=== PATIENT | male | born 1985 | race Caucasian/White ===

== ENCOUNTER 2023-09-17 14:36 | Emergency (ER) | payer BC, SELFPAY ==
--- NOTE | 2023-09-17 14:38 | ED.EAR ---
HPI - Ear Problem General Chief complaint: Ear Stated complaint: Right Ear Irritation Time Seen by Provider: 09/17/23 14:38 Source: patient Mode of arrival: ambulatory Limitations: no limitations History of Present Illness HPI Narrative: Valdo is a 37-year-old male patient presenting to the clinic today with complaints of right ear pain and possible cerumen impaction. He reports he has a history of chronic otitis externa. No fever or chills. Does have a throbbing pain to the right ear. Related Data Home Medications Medication Instructions Recorded Confirmed insulin glargine 100 unit/mL (3 18 unit subcut DAILY 09/17/23 09/17/23 mL) subcutaneous pen (Basaglar KwikPen U-100 Insulin) insulin lispro 100 unit/mL See Rx Instructions .Route .COMPLEX 09/17/23 09/17/23 subcutaneous solution Allergies Allergy/AdvReac Type Severity Reaction Status Date / Time No Known Allergies Allergy Verified 09/17/23 15:00 Review of Systems Review of Systems: Pertinent positives per HPI. Patient denies any fever, chills, rash, headache, visual changes, dizziness, cough, shortness of breath, chest pain, palpitations, nausea, vomiting, diarrhea, constipation, abdominal pain, or any urinary issues. [facility] Family History Family History Sibling Diabetes mellitus Social History Social History Smoking status: Never smoker Alcohol intake: never Substance use: never Comments At the time of my signature, I reviewed and agree with the nursing past medical, surgical, social, and family history. There is no relevant family history pertinent to the patient complaint. Exam Narrative: General: Well-developed, well nourished, in no apparent distress Head: Normocephalic, atraumatic Eyes: Pupils equally round and reactive to light bilaterally, EOM intact, sclera and conjunctive clear, no discharge, lids normal Ears: Left tm intact and clear, bilateral ear canals ceruminous, ear irrigation was performed, right ear canal swollen, tender to palpation over the right tragus and pulling of the right pinna, unable to visualize right TM due to canal swelling, ear wick was placed in the right ear canal, no drainage, grossly hearing normal. Nose: Nares patent, no discharge, no inflammation, no sinus tenderness. Mouth: Oral pharynx without lesions or masses, good dentition, MMM. Neck: Supple, trachea midline, no enlargement of anterior or posterior cervical nodes, no thyroid masses or goiter palpable. Cardio: Regular rate and rhythm, s1 and s2 normal, no murmur appreciated. Resp: Clear to auscultation bilaterally, no rhonchi, rales, wheezing or rubs Course Course Emergency Course: Portions of this record may have been created with voice recognition software. Level of Care: Express Care Visit Vital Signs Vital signs: Vital signs reviewed Procedures Ear Wax Removal Both Ears: Ear Wax Removal Date: 09/17/23 Results: Re-examined: cerumen removed completely TM Examination: TM(s) intact, normal appearance (Left) Ear Canal Exam: atraumatic (Left) and other (Right ear canal swollen) Patient Tolerated Procedure: well and no complications Complications: no problems Technique: ear canal irrigated and ear canal curetted Additional Comments: Verbal consent obtained for ear irrigation. Risk and benefits explained and patient voiced understanding. Ear irrigation performed using an elephant ear and spray water bottle. Mixture of 1/2 peroxide 1/2 water used to irrigate ear canal. Cerumen impaction cleared and left TM visualized without redness. Unable to visualize right TM due to canal swelling Ear wick was inserted into the right ear canal Grossly hearing normal. Patient tolerated procedure well Medical Decision Making MDM Narrative Medical decision making narrative
[2023-09-17 14:53] VITALS: BP 141/96; PULSE 116; RESP 16; TEMP 36.9; O2SAT 100
== END 2023-09-17 15:38 | disposition home or self-care (01) ==
PROVIDERS: Emergency Provider Nurse Practitioner Family; PCP Internal Medicine Infectious Disease
DX: H60.311 Diffuse otitis externa, right ear (principal); H61.23 Impacted cerumen, bilateral; E10.9 Type 1 diabetes mellitus without complications
CPT/HCPCS: 69209; 99213; G0463

== ENCOUNTER 2024-07-26 22:30 | Emergency (ER) | payer BC, SELFPAY ==
--- NOTE | ~2024-07-26 | XR_ITS ---
EXAMINATION: XR hand RT min 3V, XR wrist RT min 3V DATE: 07/26/2024 23:21 INDICATION: Right hand and wrist pain and swelling post fall TECHNIQUE: 1. Posteroanterior, oblique, and lateral views of the right wrist were obtained. 2. Dorsal palmar, oblique and lateral views of the right hand were obtained. COMPARISON: None. FINDINGS: Comminuted intra-articular fracture of the distal right radius. There is dorsal impaction predominant ly at the central aspect of the articular surface resulting in 35 degrees dorsal tilt of the distal a rticular surface. On the dorsal palmar projection there is a few millimeter radial displacement of th e radial styloid process and ulnar displacement of an ulnar-sided fragment of the distal radius. Nondisplaced fracture across the base of the ulnar styloid process. Normal alignment and joint spaces with no fractures in the right hand proper. IMPRESSION: 1. Comminuted dorsally impacted intra-articular fracture of the distal right radius with 35 degrees d orsal tilt. 2. Nondisplaced ulnar styloid avulsion fracture. Reviewed, dictated and finalized at location A. RONMENTAL COMPLIANCE SPECIALIST IMPRESSION: 1. Comminuted dorsally impacted intra-articular fracture of the distal right ra dius with 35 degrees dorsal tilt. 2. Nondisplaced ulnar styloid avulsion fracture.
--- NOTE | ~2024-07-26 | CT_ITS ---
EXAMINATION: CT cervical spine wo con DATE: 07/26/2024 23:38 INDICATION: Fall with possible head injury TECHNIQUE: Computed tomography (CT) of the cervical spine was performed without intravenous contrast. Automated exposure control and iterative reconstruction technique were employed. The dose-length pro duct was 317.98 mGy-cm. COMPARISON: None FINDINGS: Mild reversal of the normal cervical lordosis. Vertebral body heights are normal. No fracture. Mild d isc height loss at C3-C4, C4-C5 and C5-C6. There are associated posterior endplate osteophytes result ing in mild central canal stenosis at each of these levels. There is multilevel bilateral cervical fa cet and uncovertebral osteoarthritis. This contributes to mild neural foraminal stenosis with left-si ded predominance at C3-C4 through C5-C6. Cervical soft tissues are unremarkable. Visualized apices of the lungs are clear. IMPRESSION: 1. Mild cervical spondylosis with no acute osseous abnormality. Reviewed, dictated and finalized at location A. ACT MIXER
--- NOTE | ~2024-07-26 | CT_ITS ---
EXAMINATION: CT brain wo con DATE: 07/26/2024 23:38 INDICATION: Syncopal episode. Head injury. TECHNIQUE: Computed tomography (CT) of the head was performed without intravenous contrast. Sagittal and coronal reconstructions were performed. The mA was adjusted according to patient size. Iterative reconstruction technique was employed. The dose-length product was 681.00 mGy-cm. COMPARISON: None FINDINGS: No fracture. No acute intracranial hemorrhage, acute infarction or abnormal extra axial fluid collect ion. Ventricles are normal and symmetric. No mass/mass effect. Mild mucosal thickening in the left ma xillary sinus. The orbits and mastoid air cells are normal. IMPRESSION: 1. Normal brain. No fracture or acute intracranial process. Reviewed, dictated and finalized at location A. E LINER RUBBER
[2024-07-26 22:34] VITALS: BP 164/103; PULSE 75; RESP 15; TEMP 37.3; O2SAT 100
[2024-07-26 22:40] LABS: Glucose Point of Care 118 mg/dl (65-105)
--- NOTE | 2024-07-26 22:55 | ECG_ITS ---
Test Date: 2024-07-26 23:04:40 Measurements Intervals [place] Rate: 72 P: 66 MN: 151 QRS: 70 QRSD: 82 T: 55 QT: 357 QTc: 391 Interpretive Statements SINUS RHYTHM BASELINE ARTIFACT- I, II, III, AVR, AVL, AVF, V1-V6 NORMAL ECG No previous ECG available for comparison Electronically Signed On 07-27-2024 07:32:59 ENVIRONMENTAL TECHNOLOGY PROFESSOR by Sav Rubio D.O.
[2024-07-26] MEDS: HYDROcodone/acetaminophen (*CRX) 5-325 MG TABLET 1 TAB PO (23:06)
--- NOTE | 2024-07-26 23:10 | ED.UPPEXIN ---
HPI - Extremity Injury (Upper) General Chief Complaint: Extremity Injury, Upper Stated Complaint: fall, wrist pain Time Seen by Provider: 07/26/24 22:33 Source: patient Mode of arrival: ambulatory Limitations: no limitations History of Present Illness HPI narrative: Patient is a 38-year-old male who presents the ED with report of right wrist pain. Patient reports a history of poorly controlled type 1 diabetes. States he often over/under does his insulin. He has had issues with hypoglycemia in the past and reported seizures/passing out related to this. He states he went to the grocery store today with his cousin when he began feeling shaky. He had given himself 16 units of insulin earlier in the day after eating two granola bars. He states his cousin witnessed him pass out and fall to the ground. Patient is unsure if he hit his head. He states this occurred around 7:30 p.m. His cousin drove gave him a full Mountain Dew and drove him home. Since being home, he has noticed pain swelling in his right wrist. He is concerned he injured his wrist in the fall which prompted his return. He reports some tingling throughout the R hand. Denies numbness. Denies any other areas of pain, dizziness, headache, vision changes. Related Data Home Medications Medication Instructions Recorded Confirmed insulin glargine 100 unit/mL (3 18 unit subcut DAILY 09/17/23 09/17/23 mL) subcutaneous pen (Basaglar KwikPen U-100 Insulin) insulin lispro 100 unit/mL See Rx Instructions .Route .COMPLEX 09/17/23 09/17/23 subcutaneous solution Allergies Allergy/AdvReac Type Severity Reaction Status Date / Time No Known Allergies Allergy Verified 09/17/23 15:00 Review of Systems Review of Systems: All systems reviewed & are unremarkable except as noted in HPI. All systems reviewed & are unremarkable except as noted in HPI and below PMFSH Past Medical History Medical History (Updated 07/27/24 @ 00:07 by Lina Dick PA-C) Diabetes Family History Family History Sibling Diabetes mellitus Social History Social History Smoking status: Never smoker Alcohol intake: never Substance use: never Exam Narrative: GENERAL: Well appearing, well-nourished, non-toxic, in no acute distress. HEAD: Normocephalic, atraumatic. EYES: PERRL/EOMI, conjunctiva clear. No nystagmus. RESPIRATORY: Airway patent, respirations nonlabored. Clear to auscultation bilaterally, no rales, rhonchi, wheezing. CARDIOVASCULAR: Regular rate and rhythm without murmurs, rubs, or gallops. Radial pulses are intact and easily palpable. MUSCULOSKELETAL: Limited range of motion of right wrist flexion/extension and finger flexion due to pain. Moderate swelling noted throughout distal wrist/dorsal hand with focal TTP. Sensation intact. No tenderness through proximal forearm or R elbow. SKIN: Warm, dry, normal color. NEURO: A&O X3. Speech clear. Cranial nerves II-XII grossly intact. Steady gait. No ataxic movements. No focal neurologic deficits. PSYCHIATRIC: Appropriate mood and affect. Normal interaction. Course Vital Signs Vital signs: Vital Signs Temperature 99.1 F 07/26/24 22:34 Pulse Rate 75 07/26/24 22:34 Respiratory Rate 15 07/26/24 22:34 Blood Pressure 164/103 H 07/26/24 22:34 Pulse Oximetry 100 07/26/24 22:34 Oxygen Delivery Room Air 07/26/24 22:34 Temperature 99.1 F 07/26/24 22:34 Pulse Rate 76 07/27/24 00:37 Respiratory Rate 14 07/27/24 00:37 Blood Pressure 156/92 H 07/27/24 00:37 Pulse Oximetry 98 07/27/24 00:37 Oxygen Delivery Room Air 07/26/24 22:34 MDM - Extremity Injury (Upper) [facility] Narrative Medical decision making narrative: Blood sugar upon arrival 118. Patient was given juice here. He did not want to eat anything at this time. He reports history of frequent hypoglycemic episodes/seizure-like episodes in the past. He is not on any antiepileptic medications. Admittedly reports he is not a great diabetic and does not monitor his insulin very well. He is scheduled to follow-up with a new communication signals intelligence in early September. Patient is otherwise neurologically intact. In no acute distress. Vitals otherwise stable. Basic laboratory studies were obtained and unremarkable. No significant concerning findings. Blood sugar on CMP was 138. Stable electrolytes. Stable kidney function. No evidence of diabetic emergency at this time. CT brain and cervical spine without acute traumatic findings. X-ray of right wrist interpreted by myself with comminuted distal radius fracture with ulnar styloid fracture. Sent to [facility] for official read. Patient will be placed in sugar-tong splint. Given sling. Advised will need to follow-up with orthopedics for further evaluation/management of fracture. Will send pain medication to pharmacy. Also advised close follow-up with PCP for diabetic management. Patient given strict return precautions. He is in agreement with plan and feels comfortable going home. His cousin is at bedside and will help monitor patient. Patient discharged in stable condition. Vital signs stable at time of D/C. Medical Records Attestation: I reviewed the patient's medical records. Lab Data Attestation: I reviewed the patient's lab results. 07/26/24 23:25 07/26/24 23:25 Labs: Lab Results 07/26/24 07/26/24 Range/Units 22:38 23:25 WBC 12.8 H (4.5-10.0) K/mm3 RBC 4.21 L (4.6-6.20) M/mm3 Hgb 14.0 (14.0-18.0) g/dL Hct 40.4 L (42.0-52.0) % MCV 96.0 (80-100) fl MCH 33.3 (26-34) pg MCHC 34.7 (32-36) g/dl RDW 12.9 (11.5-14.5) % Plt Count 237 (150-375) k/mm3 MPV 9.9 (7.4-10.4) fl Immature Gran % (Auto) 0.3 (0-0.5) % Neut % (Auto) 87.5 H (45.5-73.1) % Lymph % (Auto) 8.1 L (18.3-44.2) % [place] % (Auto) 3.6 (2.6-8.5) % Eos % (Auto) 0.2 (0-4.4) % Baso % (Auto) 0.3 (0.2-1.2) % Lymph # (Auto) 1.04 (0.9-3.2) K/mm3 [place] # (Auto) 0.5 (0.1-0.6) K/mm3 Eos # (Auto) 0.0 (0-0.3) K/mm3 Baso # (Auto) 0.0 (0.0-0.1) K/mm3 Abs Immat Gran (auto) 0.04 H (0.00-0.031) K/mm3 Absolute Neuts (auto) 11.2 H (1.3-6.7) K/mm3 Absolute Nucleated RBC 0.000 (0.0-0.012) K/mm3 Nucleated RBC % 0.0 (0.0-0.2) % Sodium 133 L (137-145) mmol/L Potassium 4.4 (3.4-5.0) mmol/L Chloride 100 (98-107) mmol/L Carbon Dioxide 27 (22-30) mmol/L Anion Gap 6 (4-12) mmol/L BUN 18 (9-20) mg/dL Creatinine 0.90 (0.7-1.3) mg/dL Estim Creat Clear Calc 107 ml/min Estimated GFR > 60 (59 - ) Glucose 138 H (65-110) mg/dL POC Capillary Glucose 118 H (65-105) mg/dl Calcium 9.2 (8.4-10.2) mg/dL Magnesium 1.7 (1.6-2.3) mg/dL Total Bilirubin 0.7 (0.2-1.3) mg/dL AST 27 (17-59) U/L ALT 20 (6-50) U/L Alkaline Phosphatase 69 (38-126) U/L Total Protein 7.0 (6.3-8.2) g/dL Albumin 4.3 (3.5-5.1) g/dL Imaging Data Attestation: I personally reviewed and interpreted this imaging study as follows: My impression: XR R wrist: Comminuted distal radius fracture +ulnar styloid fracture. Possible fracture abnormality of trapezius/trapezoid bone? Radiologist's impression: STAT RAD CT brain: Unremarkable noncontrast CT scan of the brain. There is mild paranasal sinus disease. [facility] Cervical spine: No acute fracture. Reversal of the normal cervical lordosis. Hypertrophic degenerative changes with degenerative posterior osteophytes. [facility] R wrist: There is a comminuted, displaced, angulated fracture noted the distal radius. The fracture extends to the articular surface. There is a nondisplaced fracture of the ulnar styloid process. No incidental findings. ECG Data EKG #1: Attestation: I personally reviewed and interpreted this ECG as follows: ECG completion date: 07/26/24 ECG completion time: 23:04 EKG Interpretation: normal rate (72), sinus rhythm, non-specific ST changes and other (moderate baseline artifact) Discharge Plan Discharge Clinical Impression: Hypoglycemia Fracture of distal end of radius Qualifiers: Encounter type: initial encounter Fracture type: closed Fracture morphology: Colles' Laterality: right Qualified Code(s): S52.531A - Colles' fracture of right radius, initial encounter for closed fracture Syncope Qualifiers: Syncope type: unspecified Qualified Code(s): R55 - Syncope and collapse Fracture of right ulnar styloid Qualifiers: Encounter type: initial encounter Fracture type: closed Fracture alignment: nondisplaced Qualified Code(s): S52.614A - Nondisplaced fracture of right ulna styloid process, initial encounter for closed fracture Patient Disposition: Home, Self-Care Condition: Stable Instructions: Antibiotic Form, Wrist Fracture in Adults (ED), How to Use a Sling (ED), Hypoglycemia in a Person with Diabetes (ED), Splint Care (ED), What to Do if Your Blood Sugar is Low (ED) Additional Instructions: Follow-up with orthopedics for further evaluation. Call office on Sunday morning to make appointment. Wear splint until seen by orthopedics. Recommend elevation of arm, frequent icing. Utilize Tylenol/ibuprofen as needed for pain. [place] as needed for more severe pain. Continue to monitor blood sugars and administer insulin appropriately. Follow-up with your primary care doctor and communication signals intelligence for further diabetic management. Return to the ED if you experience worsening or severe symptoms, recurrent passing out/seizure episodes, recurrent injury, severe pain, worsening numbness/tingling, or any other symptoms of concern. Prescriptions: New hydrocodone-acetaminophen 5-325 mg tablet 1 tablet PO Q6H PRN (Reason: pain) Qty: 15 0RF No Action insulin lispro 100 unit/mL solution See Rx Instructions .ROUTE .COMPLEX Rx Instructions: SLIDING SCALE insulin glargine [Basaglar KwikPen U-100 Insulin] 100 unit/mL (3 mL) insulin pen 18 unit SUBCUT DAILY amoxicillin 875 mg tablet 875 mg PO Q12H 10 Days Qty: 20 0RF ofloxacin 0.3 % drops 5 drp otic (ear) BID 7 Days Qty: 5 0RF Follow-up/Referrals: Grazyna,Jose Medina. [Primary Care Provider] - Albin Monge MD [Physician] - (ORTHOPEDICS) Time of Disposition: 00:11
[2024-07-26 23:29] LABS: Basophils Percent Auto 0.3 % (0.2-1.2); Eosinophils Percent Auto 0.2 % (0-4.4); Hematocrit 40.4 % (42.0-52.0); Immature Granulocyte Absolute 0.04 K/mm3 (0.00-0.031); Immature Granulocyte Percent A 0.3 % (0-0.5); Lymphocytes Absolute Auto 1.04 K/mm3 (0.9-3.2); Lymphocytes Percent Auto 8.1 % (18.3-44.2); Mean Corpuscular HGB Conc 34.7 g/dl (32-36); Mean Corpuscular Hemoglobin 33.3 pg (26-34); Mean Platelet Volume 9.9 fl (7.4-10.4); Monocytes Absolute Auto 0.5 K/mm3 (0.1-0.6); Monocytes Percent Auto 3.6 % (2.6-8.5); Neutrophils Absolute Auto 11.2 K/mm3 (1.3-6.7); Neutrophils Percent Auto 87.5 % (45.5-73.1); Platelet Count Result 237 k/mm3 (150-375); Red Blood Count 4.21 M/mm3 (4.6-6.20); Red Cell Distribution Width 12.9 % (11.5-14.5); White Blood Count 12.8 K/mm3 (4.5-10.0)
[2024-07-26 23:47] LABS: Alanine Aminotransferase 20 U/L (6-50); Albumin Level 4.3 g/dL (3.5-5.1); Alkaline Phosphatase 69 U/L (38-126); Anion Gap 6 mmol/L (4-12); Aspartate Amino Transferase 27 U/L (17-59); Bilirubin,Total 0.7 mg/dL (0.2-1.3); Blood Urea Nitrogen 18 mg/dL (9-20); Calcium 9.2 mg/dL (8.4-10.2); Carbon Dioxide 27 mmol/L (22-30); Chloride 100 mmol/L (98-107); Estimated CRCL calculation 107 ml/min; Estimated Glomerular Filt Rate > 60; Glucose 138 mg/dL (65-110); Magnesium 1.7 mg/dL (1.6-2.3); Potassium 4.4 mmol/L (3.4-5.0); Sodium 133 mmol/L (137-145)
[2024-07-27] MEDS: KETOROLAC (*BKC) 60 MG/2 ML VIAL IM
[2024-07-27 00:37] VITALS: BP 156/92; PULSE 76; RESP 14; O2SAT 98
== END 2024-07-27 00:39 | disposition home or self-care (01) ==
PROVIDERS: Emergency Provider Physician Assistant; PCP Internal Medicine Infectious Disease
DX: S52.571A Other intraarticular fracture of lower end of right radius, initial encounter for closed fracture (principal); S52.614A Nondisplaced fracture of right ulna styloid process, initial encounter for closed fracture; R55 Syncope and collapse; E10.9 Type 1 diabetes mellitus without complications; Z79.4 Long term (current) use of insulin; W18.39XA Other fall on same level, initial encounter
CPT/HCPCS: 29125; 36415; 70450; 72125; 73110; 73130; 80053; 82948; 83735; 85025; 93005; 96372; 99284; A9270; J1885

== ENCOUNTER 2024-09-05 21:01 | Emergency (ER) | payer BC, SELFPAY ==
--- NOTE | ~2024-09-05 | XR_ITS ---
XR shoulder LT min 2V Ordering provider: Zaki Johns MD History: . L. shoulder pain this evening, no injury . Comparison: None. FINDINGS: BONES: No acute fracture or dislocation. JOINT SPACES: The acromioclavicular joint is normal. The glenohumeral joint is normal. SOFT TISSUES: Normal. IMPRESSION: No acute osseous abnormality left shoulder. Reviewed, dictated and finalized at location A. ORARY STAFF ACCOUNTANT
[2024-09-05 21:05] VITALS: BP 131/94; PULSE 93; RESP 16; TEMP 36.6; O2SAT 100
[2024-09-06 06:20] VITALS: BP 136/71; PULSE 102; RESP 18; TEMP 36.3; O2SAT 100
--- NOTE | 2024-09-06 07:25 | ED.UPPEXIN ---
HPI - Extremity Injury (Upper) General Chief Complaint: Extremity Injury, Upper Stated Complaint: shoulder injury from seizure Time Seen by Provider: 09/06/24 07:11 Source: patient Mode of arrival: ambulatory Limitations: no limitations History of Present Illness HPI narrative: patient came was nontraumatic left shoulder pain after waking up from sleep. Patient report possible seizure while was sleeping. Pain is worse with certain movement and certain position. He denies any chest pain or shortness of breath fever or chills. Related Data Home Medications ?Medication ?Instructions ?Recorded ?Confirmed ?Last Taken ?Type insulin glargine 100 unit/mL (3 18 unit subcut DAILY 09/17/23 09/17/23 Unknown History mL) subcutaneous pen (Basaglar KwikPen U-100 Insulin) insulin lispro 100 unit/mL See Rx Instructions .Route .COMPLEX 09/17/23 09/17/23 Unknown History subcutaneous solution Allergies Allergy/AdvReac Type Severity Reaction Status Date / Time No Known Allergies Allergy Verified 09/17/23 15:00 Review of Systems Review of Systems: All systems reviewed & are unremarkable except as noted in HPI and below PMFSH Past Medical History Medical History Diabetes Family History Family History Sibling Diabetes mellitus Social History Social History Smoking status: Never smoker Alcohol intake: never Substance use: never Exam Narrative: General appearance: Well-developed, well-nourished Skin: Normal color Head: Normocephalic, nontraumatic Eyes: Clear conjunctiva ENT: Oropharynx normal, ears normal, nose normal Neck: Supple, nontender Chest and respiratory: Airway patent, no respiratory distress, no accessory muscle use Heart: Regular rate/rhythm Abdomen: Soft, nontender, no organomegaly, quiet bowel sounds Vascular: Normal peripheral pulses, normal capillary refill. Musculoskeletal: Slight limited range of motion of the left shoulder because of pain, no bruises, no swelling or deformity Neurologic: Alert and oriented ?3, NEUROLOGICAL PHYSIOTHERAPIST is normal as tested, no gross motor deficit Course Vital Signs Vital signs: Vital Signs Temperature 36.6 C 09/05/24 21:05 Pulse Rate 93 09/05/24 21:05 Respiratory Rate 16 09/05/24 21:05 Blood Pressure 131/94 H 09/05/24 21:05 Pulse Oximetry 100 09/05/24 21:05 Oxygen Delivery Room Air 09/05/24 21:05 Temperature 36.6 C 09/06/24 07:53 Pulse Rate 89 09/06/24 07:53 Respiratory Rate 18 09/06/24 07:53 Blood Pressure 124/79 09/06/24 07:53 Pulse Oximetry 99 09/06/24 07:53 Oxygen Delivery Room Air 09/05/24 21:05 MDM - Extremity Injury (Upper) MDM Narrative Medical decision making narrative: nontraumatic left shoulder pain probably secondary to laying on it or an episode of seizure. X-ray of the left shoulder showed no acute osseous abnormality Imaging Data Radiologist's impression: Impressions Shoulder X-Ray 09/05/24 21:45 IMPRESSION: No acute osseous abnormality left shoulder. Critical Care Time Critical Care Time Critical Care Time: No Discharge Plan Discharge Clinical Impression: Left shoulder pain Patient Disposition: Home, Self-Care Condition: Stable Instructions: Shoulder Pain (ED) Additional Instructions: Return if symptoms are worsening , call your family physician for appointment, take Tylenol as as needed for aches and pain, continue home medications. Patient Language: Egyptian Prescriptions: No Action insulin lispro 100 unit/mL solution See Rx Instructions .ROUTE .COMPLEX Rx Instructions: SLIDING SCALE insulin glargine [Basaglar KwikPen U-100 Insulin] 100 unit/mL (3 mL) insulin pen 18 unit SUBCUT DAILY amoxicillin 875 mg tablet 875 mg PO Q12H 10 Days Qty: 20 0RF ofloxacin 0.3 % drops 5 drp otic (ear) BID 7 Days Qty: 5 0RF hydrocodone-acetaminophen 5-325 mg tablet 1 tablet PO Q8H PRN (Reason: pain) Qty: 15 0RF Follow-up/Referrals: Grazyna,Derek Medina [Primary Care Provider] - Stand Alone Forms: Work/School Release IP
[2024-09-06 07:53] VITALS: BP 124/79; PULSE 89; RESP 18; TEMP 36.6; O2SAT 99
--- OUTSIDE RECORDS SUMMARY | 2024-09-13 06:35 | XMS_ITS | Encounter Summary ---
Author Organization [facility] Address [address] [place] [address] Care Team Providers Care Picture Frames Inspector Name Role Phone Unavailable Primary Care Provider Unavailabl e Reason for Visit * Reason Onset Date Comments Follow-up 02/21/2017 Encounter Details Date Type Department Care Team (Late st Contact Info) Description 02/21/2017 Telephone [facility] AT [address] [id number] [place] Follow-up Social History Tobacco Use Types Packs/Day Years Used Date Smoking Tobacco: Never Sex and Gender Information Value Date Recorded Sex Assigned at Not on file Gender Identity Not on file Sexual Orientation Not on file documented as of this encounter Plan of Treatment Not on file documented as of this encounter Visit Diagnoses Not on filedocumented in this encounter
--- OUTSIDE RECORDS SUMMARY | 2024-09-13 06:35 | XMS_ITS | Clinical Summary ---
Author Organization [facility] Address [address] [place] [address] Care Team Providers Care Ethylene Compressor Operator Name Role Phone Adam Geronimo MD Primary Care Provider Adam Geronimo MD Unavailable [phone] Source Comments [facility],non-owned Affiliates and Associated Physician Practices is amultiple site organization consisting of ambulatory clinics and hospital sitesin [place], [place], [place] and [place]. This disclosure is being madepursuant to the Care Everywhere program and may not contain all information available regarding this patient. Last updated 18.[facility] Allergies No known active allergies Medications * Be aware that medications may not be up to date on this document. Alwaysverify current medications with the patient. Medication Sig Dispensed Refills Start Date End Date Status Insulin Glargine (LANTUS SC) Active INSULIN REGULAR HUMAN IN Active Insulin Glargine (LANTUS SC) Active fluticasone propionate (FLONASE) 50 MCG/ACT nasal sprayIndications:Acut e sinusitis, recurrence not specified, unspecified location [place] 2 sprays into each nostril once daily 1 bottles 02/25/2018 Active Active Problems No known active problems Social History Tobacco Use Types Packs/Day Years Used Date Smoking Tobacco: Former Smokeless Tobacco: Never Sex and Gender Information Value Date Recorded Sex Assigned at Not on file Gender Identity Not on file Sexual Orientation Not on file Last Filed Vital Signs Vital Sign Reading Time Taken Comments Blood Pressure 104/68 02/25/2018 3:25 PM CDT Pulse 73 02/25/2018 3:25 PM CDT Temperature 37.3 ??C (99.2 ??F) 02/25/2018 3:25 PM CD T Respiratory Rate 17 02/25/2018 3:25 PM CDT Oxygen Saturation 98% 11/13/2017 3:49 PM CDT Inhaled Oxygen Concentration - - Weight 98.9 kg (218 lb) 02/25/2018 3:25 PM CDT Height 182.9 cm (6') 02/25/2018 3:25 PM CDT Body Mass Index 29.57 02/25/2018 3:25 PM CDT Plan of Treatment Health Maintenance Due Date Last Done Comments HIV SCREENING 2000 HEPATITIS C SCREENING 12/15/2003 DTAP/TDAP/TD VACCINES (1 - Tdap) 2004 HEPATITIS B VACCINE (1 of 3 - 19+ 3-dose series) 2004 DEPRESSION SCREENING 09/03/2023 COVID-19 VACCINE (1 - 2023-2 5 season) 2024 INFLUENZA VACCINE (#1) 2024 ZOSTER VACCINE (1 of 2) 12/20/2035 HIB VACCINE Aged Out No longer eligi ble based on patient's age to complete this topic HPV VACCINE Aged Out No longer eligi ble based on patient's age to complete this topic MENINGOCOCCAL VACCINE Aged Out No keena elvis eligible based on patient's age to complete this topic PNEUMOCOCCAL VACCINE Aged Out No long er eligible based on patient's age to complete this topic Care Teams Ethylene Compressor Operator Relationship Specialty [place] [address] [place] [phone] PCP - General Internal Medicine 02/25/18 [place] [address] [place] [address] [phone] Internal Medicine 02/25/18
--- OUTSIDE RECORDS SUMMARY | 2024-09-13 06:35 | XMS_ITS | Patient Health Summary ---
Author Organization [facility] Address [address] [place] [address] Care Team Providers Care Metalizer Name Role Phone Adam Geronimo MD Primary Care Provider Adam Geronimo MD Unavailable [phone] Note from [facility],non-owned Affiliates and Associated Physician Practices is amultiple site organization consisting of ambulatory clinics and hospital sitesin [place], [place], [place] and [place]. This disclosure is being madepursuant to the Care Everywhere program and may not contain all information available regarding this patient. Last updated 18.[facility] Allergies No known active allergies Medications * Be aware that medications may not be up to date on this document. Alwaysverify current medications with the patient. * Insulin Glargine (LANTUS SC) * INSULIN REGULAR HUMAN IN * Insulin Glargine (LANTUS SC) * fluticasone propionate (FLONASE) 50 MCG/ACT nasal spray(Started 02/25/2018) [place] 2 sprays into each nostril once daily Active Problems No known active problems Social [...] Mass Index 29.57 02/25/2018 3:25 PM CDT Procedures * STREP A SCREEN - POINT OF CARE (AMB) STL(Performed 11/13/2017) Performed for Acute streptococcal pharyngitis * STREP A SCREEN - POINT OF CARE (AMB) STL(Performed 02/19/2017) Performed for Tonsillitis Results * (ABNORMAL) STREP A SCREEN - POINT OF CARE (AMB) STL (11/13/2017) Only the most recent of2 resultswithin the time period is included. [facility] Strep A Rapid POCT Positive(A) Negative Strep A Internal Control Present Lot # [id number] Expiration Date 05/24/2019 Throat ENTIRE THROAT (SURFACE REGION OF NECK) / Unknown 11/13/2017 Leatha Calle APRN-[facility] - POINT OF CARE ORDERABLES Care Teams Metalizer Relationship Specialty Start Date End Date Adma Geronimo MD [address], [place] [phone] PCP - General Internal Medicine 02/25/18 Adam Geronimo MD [address], [place] [phone] Internal Medicine 02/25/18
--- OUTSIDE RECORDS SUMMARY | 2024-09-13 06:35 | XMS_ITS | Encounter Summary ---
Author Organization [facility] Address [address] [place] [address] Care Team Providers Care Advertising Representative Name Role Phone Unavailable Primary Care Provider Unavailabl e Reason for Visit * Reason Comments Sore Throat Sinusitis Encounter Details Date Type Department Care Team (Late st Contact Info) Description 02/19/2017 4:40 PM CDT Office Visit [facility] [address] [address] [facility] Tonsillitis (Primary Dx); Type 1 diabetes mellitus without complication (HCC) Social History Tobacco Use Types Packs/Day Years Used Date Smoking Tobacco: Never Sex and Gender Information Value Date Recorded Sex Assigned at Not on file Gender Identity Not on file Sexual Orientation Not on file documented as of this encounter Last Filed Vital Signs Vital Sign Reading Time Taken Comments Blood Pressure 118/66 02/19/2017 4:42 PM CDT Pulse 76 02/19/2017 4:42 PM CDT Temperature 37.3 ??C (99.2 ??F) 02/19/2017 4:42 PM CD T Respiratory Rate 16 02/19/2017 4:42 PM CDT Oxygen Saturation 97% 02/19/2017 4:42 PM CDT Inhaled Oxygen Concentration - - Weight 102.1 kg (225 lb) 02/19/2017 4:42 PM CDT Height 182.9 cm (6') 02/19/2017 4:42 PM CDT Body Mass Index 30.52 02/19/2017 4:42 PM CDT documented in this encounter Patient Instructions * Patient Instructions* Oksana Fuller APRN-PHOTOGRAPHIC PROCESSOR - 02/19/2017 4:52 PM CDT Images from the original note were not included. -Finish antibiotic as prescribed -Tylenol, Motrin as directed on package for pain -Warm salt water gargles -Change toothbrush after 3 days -Contact PCP if no improvement in 24-48 hours or if worsening of symptoms -Go to Urgent Care or ER if symptoms worsen. -Continue checking blood glucose at home as directed by your doctor -Continue sliding scale insulin as prescribed Tonsillitis WHAT YOU NEED TO KNOW: Tonsillitis is inflammation of your tonsils. Tonsils are the lumps of tissue on both sides of the back of your throat. Tonsils are part of your immune system. They help you fight infections. Recurrent tonsillitis is when you have tonsillitis many times in 1 year. Chronic tonsillitis is when you have a sore throat that lasts 3 months or longer. DISCHARGE INSTRUCTIONS: Medicines: You may need any of the following: ?? Acetaminophen decreases pain and fever. It is available without a doctor's order. Ask how much to take and how often to take it. Follow directions. Acetaminophen can cause liver damage if not taken correctly. ?? NSAIDs , such as ibuprofen, help decrease swelling, pain, and fever. This medicine is available with or without a doctor's order. NSAIDs can cause stomach bleeding or kidney problems in certain people. If you take blood thinner medicine, always ask your healthcare provider if NSAIDs are safe foryou. Always read the medicine label and follow directions. ?? Antibiotics help treat a bacterial infection. ?? Take your medicine as directed. Contact your healthcare provider if you think your medicine is not helping or if you have side effects. Tell him or her if you are allergic to any medicine. Keep a list of the medicines, vitamins, and herbs you take. Include the amounts, and when and why you take them. Bring the list or the pill bottles to follow-up visits. Carry your medicine list with you in case of an emergency. Call 911 for the following: ?? You have trouble breathing because your tonsils are swollen. Contact your healthcare provider if: ?? You have a fever. ?? Your pain gets worse or does not get better after you take pain medicine. ?? Your sore throat is not better after you have finished antibiotic treatment. ?? You have trouble sleeping and wake up trying to catch your breath. ?? You have questions or concerns about your condition or care. Rest when you feel it is needed. Slowly start to do more each day. Return to your daily activities as directed. Drink liquids as directed: You may need to drink more liquid than usual to help prevent dehydration. Ask how much liquid to drink each day and which liquids are best for you. Gargle with warm salt water: This may help decrease throat pain. Mix 1 teaspoon of salt in 8 ouncesof warm water. Ask how often you should do this. Prevent the spread of germs: Wash your hands often. Do not share food or drinks with anyone. You may be able to return to work when you feel better and your fever is gone for at least 24 hours. Follow up with your healthcare provider as directed: Write down your questions so you remember to ask them during your visits. ?? 2016 [employer]. Information is for End User's use only and may not be sold, redistributed or otherwise used for commercial purposes. All illustrations and images included in CareNotes?? are the copyrighted property of [employer]. or [employer]. The above information is an early childhood educator aide only. It is not intended as medical advice for individual conditions or treatments. Talk to your doctor, nurse or pharmacist before following any medical regimen to see if it is safe and effective for you. documented in this encounter Progress Notes * Oksana Fuller APRN-CNP - 02/19/2017 4:44 PM CDT [facility] Chief Complaint Patient presents with ??? Sore Throat ??? Sinusitis SUBJECTIVE: HPI Comments: 31 y/o M presents to clinic with c/o sore throat, painful swallowing for several days. + fever. Taking cough drops for relief. Hx DM-1, checks blood glucose 2-3x daily and states blood sugars running normal. General The history is provided by the patient. This is a new problem. The current episode started more than 2 days ago. The problem occurs daily. The problem has been gradually worsening. The pain is at a severity of 7/10. The pain is moderate. Body Location: throat.Associated symptoms include headaches. T reatments tried: throat swab. The treatment provided mild relief. Past Medical History: Diagnosis Date ??? Diabetes mellitus No current outpatient prescriptions on file prior to visit. No current facility-administered medications on file prior to visit. No past surgical history on file. Social History Social History ??? Marital status: Unknown Spouse name: N/A ??? Number of children: N/A ??? Years of education: N/A Occupational History ??? Not on file. Social History Main Topics ??? Smoking status: Never Smoker ??? Smokeless tobacco: Not on file ??? Alcohol use Not on file ??? Drug use: Not on file ??? Sexual activity: Not on file Other Topics Concern ??? Not on file Social History Narrative ??? No narrative on file No family history on file. Current Outpatient Prescriptions Medication Sig Dispense Refill ??? insulin aspart (NOVOLOG) vial Inject subcutaneously 3 times daily before meals ??? Insulin Glargine (LANTUS SC) ??? amoxicillin (AMOXIL) 875 MG tablet Take 1 Tab by mouth every 12 hours for 10 days 20 Tab 0 No current facility-administered medications for this visit. No Known Allergies REVIEW OF SYSTEMS: Review of Systems Constitutional: Positive for fever. HENT: Positive for sore throat. Respiratory: Negative. Neurological: Positive for headaches. Endo/Heme/Allergies: Negative. All other systems reviewed and are negative. OBJECTIVE: General appearance: alert, well appearing, and in no distress. BP 118/66 Pulse 76 Temp 99.2 ??F Resp 16 Ht 1.829 m (6') Wt 102.1 kg (225 lb) SpO2 97% BMI 30.52 kg/m2 Physical Exam Constitutional: He is well-developed, well-nourished, and in no distress. HENT: Head: Normocephalic. Right Ear: External ear normal. Left Ear: External ear normal. Nose: Nose normal. Mouth/Throat: Uvula is midline and mucous membranes are normal. Oropharyngeal exudate and posteriororopharyngeal erythema present. 2+ tonsillar enlargement Neck: Normal range of motion. Neck supple. Cardiovascular: Normal rate, regular rhythm and normal heart sounds. Pulmonary/Chest: Effort normal and breath sounds normal. Vitals reviewed. ASSESSMENT: Office Visit on 02/19/17 STREP A SCREEN Result Value Ref Range Strep A Rapid Positive (Abnormal) Negative Strep A INTERNAL CONTROL Present Lot Number [id number] Expiration Date 10/25/2018 Encounter Diagnoses Name Primary? Tonsillitis Yes ??? Type 1 diabetes mellitus without complication PLAN: Orders Placed This Encounter ??? STREP A SCREEN ??? amoxicillin (AMOXIL) 875 MG tablet Sig: Take 1 Tab by mouth every 12 hours for 10 days Dispense: 20 Tab Refill: 0 -Finish antibiotic as prescribed -Tylenol, Motrin as directed on package for pain -Warm salt water gargles -Change toothbrush after 3 days -Contact PCP if no improvement in 24-48 hours or if worsening of symptoms -Go to Urgent Care or ER if symptoms worsen. -Continue checking blood glucose at home as directed by your doctor -Continue sliding scale insulin as prescribed documented in this encounter Plan of Treatment Not on file documented as of this encounter Procedures Procedure Name Priority Date/Time Associated Diagnosis Comments STREP A SCREEN - POINT OF CARE (AMB) STL Routine 02/19/2017 Tonsillitis documented in this encounter Results * (ABNORMAL) STREP A SCREEN (02/19/2017) Strep A Rapid POCT Positive(A) Negative Strep A Internal Control Present Lot # [id number] Expiration Date 10/25/2018 Throat ENTIRE THROAT (SURFACE REGION OF NECK) / Unknown 02/19/2017 [facility] - POINT OF C ARE ORDERABLES documented in this encounter Visit Diagnoses Diagnosis Tonsillitis- Primary Acute tonsillitis Type 1 diabetes mellitus without complication (HCC) Type I (juvenile type) diabetes mellitus without mention of complication, not stated as uncontrolled documented in this encounter
--- OUTSIDE RECORDS SUMMARY | 2024-09-13 06:35 | XMS_ITS | Encounter Summary ---
Author Organization [facility] Address [address] [place] [address] Care Team Providers Care It Network Engineer Name Role Phone Adam Geronimo MD Primary Care Provider Reason for Visit * Reason Comments Ear Problem Sinusitis ALSO NOSE HAS SORE Encounter Details Date Type Department Care Team (Latest Contact Info) Description 11/13/2017 3:40 PM CDT Office Visit [facility] AT [address] [phone] Provider, Carole Blas Superficial skin infection (Primary Dx); Acute streptococcal pharyngitis Social History Tobacco Use Types Packs/Day Years Used Date Smoking Tobacco: Former Cigarettes Q uit: 2005 Smokeless Tobacco: Never Sex and Gender Information Value Date Recorded Sex Assigned at Not on file Gender Identity Not on file Sexual Orientation Not on file documented as of this encounter Last Filed Vital Signs Vital Sign Reading Time Taken Comments Blood Pressure 100/72 11/13/2017 3:49 PM CDT Pulse 69 11/13/2017 3:49 PM CDT Temperature 37.1 ??C (98.8 ??F) 11/13/2017 3:49 PM CD T Respiratory Rate 16 11/13/2017 3:49 PM CDT Oxygen Saturation 98% 11/13/2017 3:49 PM CDT Inhaled Oxygen Concentration - - Weight 96.2 kg (212 lb) 11/13/2017 3:49 PM CDT Height 182.9 cm (6') 11/13/2017 3:49 PM CDT Body Mass Index 28.75 11/13/2017 3:49 PM CDT documented in this encounter Patient Instructions * Patient Instructions* Leatha Calle, DISPATCHER MOTOR VEHICLE-STUDIO ENGINEER - 11/13/2017 4:24 PM CDT Images from the original note were not included. Drink plenty of fluids May take Tylenol or Ibuprofen as directed per package instructions Warm salt water gargles Humidifier Change toothbrush on day 3 of antibiotic (or after 6 doses)- evening SEEK EMERGENCY CARE IF SEVERE SYMPTOMS PERSIST, SUCH , BUT NOT LIMITED TO: HIGH FEVER, NECK PAIN,SWELLING OF THE NECK, NECK TENDERNESS, DEVELOPMENT OF RASH, DIFFICULTY SWALLOWING, MENTAL STATUS CHANGES, SEVERE HEADACHE, CHANGES IN THE COLOR OF YOUR URINE, DECREASED URINATION, OR INABILITY TO SWALLOW SALIVA (MAY MANIFEST DROOLING IN CHILDREN) Seek emergency care for: Wound getting larger and/or more painful Develop fever Discharge from wound New swelling or pain Red streaks coming from infected area Abscess SFDC SOLUTION ARCHITECT: An abscess is an area under the skin where pus (infected fluid) collects. An abscess is often caused by bacteria, fungi or other germs that get into an open wound. You can get an abscess anywhere on your body. Common signs and symptoms of an abscess: You may have a swollen mass that is red and painful. Pus may leak out of the mass. The pus will be white or yellow and may smell bad. You may have redness andpain days before the mass appears. You may have a fever and chills if the infection spreads. Seek immediate care if: ?? The area around your abscess becomes very painful, warm, or has red streaks. ?? You have a fever and chills. ?? Your heart is beating faster than usual. ?? You feel faint or confused. Contact your healthcare provider if: ?? Your abscess gets bigger or does not get better. ?? Your abscess returns. ?? You have questions or concerns about your condition or care. Treatment for an abscess: Your healthcare provider may need to make a cut in the abscess to allow the pus to drain. You may need surgery to remove your abscess. You may need any of the following: ?? Antibiotics help treat a bacterial infection. ?? Acetaminophen decreases pain and fever. It [...] the medicine label and follow directions. ?? Take your medicine as directed. Contact [...] with you in case of an emergency. Self-care: ?? Apply a warm compress to your abscess. This will help it open and drain. Wet a washcloth in warm, but not hot, water. Apply the compress for 10 minutes. Repeat this 4 times each day. Do not press on an abscess or try to open it with a needle. You may push the bacteria deeper or into your blood. ?? Do not share your clothes, towels, or sheets with anyone. This can spread the infection to others. ?? Wash your hands often. This can help prevent the spread of germs. Use soap and water or an alcohol-based hand rub. Care for your wound after it is drained: ?? Care for your wound as directed. If your healthcare provider says it is okay, carefully remove the bandage and gauze packing. You may need to soak the gauze to get it out of your wound. Clean yourwound and the area around it as directed. Dry the area and put on new, clean bandages. Change your bandages when they get wet or dirty. ?? Ask your healthcare provider how to change the gauze in your wound. Keep track of how many pieces of gauze are placed inside the wound. Do not put too much packing in the wound. Do not pack the gauze too tightly in your wound. Follow up with your healthcare provider in 1 to 3 days: You may need to have your packing removed or your bandage changed. Write down your questions so you remember to ask them during your visits. ?? 2017 [employer] Information is for End User's use only and may not be sold, redistributed or otherwise used for commercial purposes. All illustrations and images included in CareNotes?? are the copyrighted property of [employer]. or [employer]. The above information is an motel maid only. It is not intended as medical advice for individual conditions or treatments. Talk to your doctor, nurse or pharmacist before following any medical regimen to see if it is safe and effective for you. Strep Throat SFDC SOLUTION ARCHITECT: Strep throat is a throat infection caused by bacteria. It is easily spread from person to person. Common symptoms include the following: ?? Sore, red, and swollen throat ?? Fever and headache ?? Upset stomach, abdominal pain, or vomiting ?? White or yellow patches or blisters in the back of your throat ?? Tender, swollen lumps on the sides of your neck or jaw ?? Throat pain when you swallow Call 911 for any of the following: ?? You have trouble breathing. Seek care immediately if: ?? You have new symptoms like a bad headache, stiff neck, chest pain, or vomiting. ?? You are drooling because you cannot swallow your spit. Contact your healthcare provider if: ?? You have a fever. ?? You have a rash or ear pain. ?? You have green, yellow-brown, or bloody mucus when you cough or blow your nose. ?? You are unable to drink anything. ?? You have questions or concerns about your condition or care. Treatment for strep throat may include antibiotic medicine to treat your strep throat. You should feel better within 2 to 3 days after you start antibiotics. You may return to work or school 24 hoursafter you start antibiotics. Manage strep throat: ?? Use lozenges, ice, soft foods, or popsicles to soothe your throat. ?? Drink juice, milk shakes, or soup if your throat is too sore to eat solid food. Drinking liquidscan also help prevent dehydration. ?? Gargle with salt water. Mix ?? teaspoon salt in a glass of warm water and gargle. This may help reduce swelling in your throat. ?? Do not smoke. Nicotine and other chemicals in cigarettes and cigars can cause lung damage and make your symptoms worse. Ask your healthcare provider for information if you currently smoke and needhelp to quit. E-cigarettes or smokeless tobacco still contain nicotine. Talk to your healthcare provider before you use these products. Prevent the spread of strep throat: ?? Wash your hands often. Use soap and water. Wash your hands after you use the bathroom, change a child's diapers, or sneeze. Wash your hands before you prepare or eat food. ?? Do not share food or drinks. Replace your toothbrush after you have taken antibiotics for 24 hours. Follow up with your healthcare provider as directed: Write down your questions so you remember to ask them during your visits. ?? 2017 [employer] Information is for End User's use only and may not be sold, redistributed or otherwise used for commercial purposes. All illustrations and images included in CareNotes?? are the copyrighted property of [employer]. or [employer]. The above information is an motel maid only. It is not intended as medical advice for individual conditions or treatments. Talk to your doctor, nurse or pharmacist before following any medical regimen to see if it is safe and effective for you. documented in this encounter Progress Notes * Leatha Calle APRN-CNP - 11/13/2017 3:58 PM CDT Images from the original note were not included. Subjective: Bro Cleaning is a 31 y.o. male who presents to clinic today for Chief Complaint Patient presents with ??? Ear Problem ??? Sinusitis ALSO NOSE HAS SORE . Bro Cleaning is here for evaluation of congestion, post nasal drip, right ear pressure/pain, sinus pressure. PCP is Adam Martini MD. He states the Onset was: 3 days and course is gradually worsening. He is drinking plenty of fluids. Positive for sick contacts. OTC- none Patient also with sore to tip of nose. Was able to expel pus and blood. Patient with history of staph infection and DM Type 1. Past Medical History: Diagnosis Date ??? Diabetes mellitus No family history on file. Current Outpatient Prescriptions Medication Sig Dispense Refill ??? INSULIN REGULAR HUMAN IN ??? clindamycin (CLEOCIN) 150 MG capsule Take 1 capsule by mouth 3 times daily for 10 days 30 capsule 0 ??? Insulin Glargine (LANTUS SC) No current facility-administered medications for this visit. No Known Allergies Social History Social History ??? Marital status: Single Social History Main Topics ??? Smoking status: Never Smoker Review of Systems Constitutional: Negative for fevers, chills. Eyes: Negative Ears, nose, mouth, and throat: Positive for right ear pain/pressure, sinus pressure, nasal congestion, and nasal drainage. Respiratory: Negative for acute cough Cardiovascular: Negative for palpitations Gastrointestinal: Negative for poor appetite, nausea, vomiting Hematologic/lymphatic: Negative Skin: Positive for reddened lesion to nose Objective: BP 100/72 Pulse 69 Temp 98.8 ??F Resp 16 Ht 1.829 m (6') Wt 96.2 kg (212 lb) SpO2 98% BMI 28.75 kg/m2 General appearance: alert, cooperative, no distress, oriented to person, place, and time, well appearing Head: normocephalic, without trauma Eyes: sclera and conjunctiva clear Ears: canals clear, hearing intact to voice. Bilateral TM with serous fluid. No erythema or bulging Nose: nares open; no septal deviation is noted, mucosa erythematous and swollen, clear rhinorrhea Throat: no mucous membrane abnormalities, moderate oropharyngeal erythema, tonsillar hypertrophy 4+, exudates present Neck: supple Nodes: cervical adenopathy bilaterally Lungs: breath sounds normal and symmetric; no rales or wheezes Heart: regular rhythm, normal S1 and S2, without murmurs, gallops or rubs Skin: Small lesion to nose with surrounding erythema. Warm to touch. Painful with palpation. Assessment: Encounter Diagnoses Name Primary? Superficial skin infection Yes ??? Acute streptococcal pharyngitis Plan: Drink plenty of fluids May take Tylenol or Ibuprofen as directed per package instructions Warm salt water gargles Humidifier Change toothbrush on day 3 of antibiotic (or after 6 doses)- SEEK EMERGENCY CARE IF SEVERE SYMPTOMS PERSIST, SUCH , BUT NOT LIMITED TO: HIGH FEVER, NECK PAIN,SWELLING OF THE NECK, NECK TENDERNESS, DEVELOPMENT OF RASH, DIFFICULTY SWALLOWING, MENTAL STATUS CHANGES, SEVERE HEADACHE, CHANGES IN THE COLOR OF YOUR URINE, DECREASED URINATION, OR INABILITY TO SWALLOW SALIVA (MAY MANIFEST DROOLING IN CHILDREN) Take all medications as prescribed. Discussed potential adverse effects with patient. Reviewed education materials and instructions with patient and answered all questions. Seek emergency care for: Wound getting larger Develop fever Discharge from wound New swelling or pain Red streaks coming from infected area Orders Placed This Encounter ??? STREP A SCREEN - POINT OF CARE (AMB) STL ??? clindamycin (CLEOCIN) 150 MG capsule Sig: Take 1 capsule by mouth 3 times daily for 10 days Dispense: 30 capsule Refill: 0 Recent Results (from the past 24 hour(s)) STREP A SCREEN - POINT OF CARE (AMB) STL Collection Time: 11/13/17 12:00 AM Result Value Ref Range Strep A Rapid Positive (Abnormal) Negative Strep A INTERNAL CONTROL Present Lot Number [id number] Expiration Date 05/24/2019 Leatha Calle APRN, FLIGHT CONTROL TOWER OPERATOR- 11/13/2017 4:23 PM documented in this encounter Plan of Treatment Not on file documented as of this encounter Procedures Procedure Name Priority Date/Time Associated Diagnosis Comments STREP A SCREEN - POINT OF CARE (AMB) STL Routine 11/13/2017 Acute streptococcal pharyngitis documented in this encounter Results * (ABNORMAL) STREP A SCREEN - POINT OF CARE (AMB) STL (11/13/2017) Strep A Rapid POCT Positive(A) Negative Strep A Internal Control Present Lot # [id number] Expiration Date 05/24/2019 Throat ENTIRE THROAT (SURFACE REGION OF NECK) / Unknown 11/13/2017 [facility] - POINT OF CARE ORDERABLES documented in this encounter Visit Diagnoses Diagnosis Superficial skin infection- Primary Unspecified local infection of skin and subcutaneous tissue Acute streptococcal pharyngitis Streptococcal sore throat documented in this encounter Care Teams It Network Engineer Relationship Specialty Start Date End Date Adam Geronimo MD [address] [place], [place] [phone] PCP - General Internal Medicine 11/13/17 02/24/18 documented as of this encounter
--- OUTSIDE RECORDS SUMMARY | 2024-09-13 06:35 | XMS_ITS | Encounter Summary ---
Author Organization [facility] Address [address] [place] [address] Care Team Providers Care Plasterer Spot Name Role Phone Adam Geronimo MD Primary Care Provider Reason for Visit * Reason Onset Date Comments Follow-up 11/15/2017 Encounter Details Date Type Department Care Team (Late st Contact Info) Description 11/15/2017 Telephone [facility] AT [address] [phone] Tia Barton Follow-up Social History Tobacco Use [...] Diagnoses Not on filedocumented in this encounter Care Teams Plasterer Spot Relationship Specialty [place] [address] [place] [phone] PCP - General Internal Medicine 11/13/17 02/24/18 documented as of this encounter
--- OUTSIDE RECORDS SUMMARY | 2024-09-13 06:35 | XMS_ITS | Referral Summary ---
Author Organization [facility] Address [address] [place] [address] Care Team Providers Care Product Manager Medical Device Name Role Phone Adam Geronimo MD Primary Care Provider Adam Geronimo MD Unavailable [phone] Source Comments [facility],non-owned Affiliates and Associated Physician Practices is amultiple site organization consisting of ambulatory clinics and hospital sitesin [place], [place]. This disclosure is being madepursuant to the Care Everywhere program and may not contain all information available regarding this patient. Last updated 18.[facility] Allergies No known active allergies Medications * [...] e sinusitis, recurrence not specified, unspecified location [place] 2 sprays into each nostril once daily [...] 02/25/2018 3:25 PM CDT Plan of Treatment Not on file Care Teams Product Manager Medical Device Relationship Specialty Start Date End Date Adam Geronimo MD [address] [place], [place] [phone] PCP - General Internal Medicine 02/25/18 Adam Geronimo MD [address] [place], [place] [phone] Internal Medicine 02/25/18
--- OUTSIDE RECORDS SUMMARY | 2024-09-13 06:35 | XMS_ITS | Encounter Summary ---
Author Organization [facility] Address [address] [place] [address] Care Team Providers Care Receiver Setter Name Role Phone Adam Geronimo MD Primary Care Provider Adam Geronimo MD Unavailable [phone] Reason for Visit * Reason Comments Ear Pain Sinusitis Congestion Encounter Details Date Type Department Care Team (Late st Contact Info) Description 02/25/2018 3:20 PM CDT Office Visit [facility] AT [address] [address] Provider, Carole Blas Otitis externa of both ears, unspecified chronicity, unspecified type (Primary Dx); Bilateral acute serous otitis media, recurrence not specified; Acute sinusitis, recurrence not specified, unspecified location Social History Tobacco Use Types Packs/Day Years [...] 17 02/25/2018 3:25 PM CDT Oxygen Saturation - - Inhaled Oxygen Concentration - - Weight 98.9 kg (218 lb) 02/25/2018 3:25 PM CDT Height 182.9 cm (6') 02/25/2018 3:25 PM CDT Body Mass Index 29.57 02/25/2018 3:25 PM CDT documented in this encounter Patient Instructions * Patient Instructions* Wild Hudson APRN-ELECTRICAL MACHINIST - 02/25/2018 3:33 PM CDT Images from the original note were not included. Sinusitis PERSONAL CARE ATTENDANT: Sinusitis is inflammation or infection of your sinuses. It is most often caused by a virus. Acute sinusitis may last up to 12 weeks. Chronic sinusitis lasts longer than 12 weeks. Recurrent sinusitis means you have 4 or more times in 1 year. Common symptoms include the following: ?? Fever ?? Pain, pressure, redness, or swelling around the forehead, cheeks, or eyes ?? Thick yellow or green discharge from your nose ?? Tenderness when you touch your face over your sinuses ?? Dry cough that happens mostly at night or when you lie down ?? Headache and face pain that is worse when you lean forward ?? Tooth pain, or pain when you chew Seek care immediately if: ?? Your eye and eyelid are red, swollen, and painful. ?? You cannot open your eye. ?? You have vision changes, such as double vision. ?? Your eyeball bulges out or you cannot move your eye. ?? You are more sleepy than normal, or you notice changes in your ability to think, move, or talk. ?? You have a stiff neck, a fever, or a bad headache. ?? You have swelling of your forehead or scalp. Contact your healthcare provider if: ?? Your symptoms do not improve after 3 days. ?? Your symptoms do not go away after 10 days. ?? You have nausea and are vomiting. ?? Your nose is bleeding. ?? You have questions or concerns about your condition or care. Treatment for sinusitis: Your symptoms may go away on their own. Your healthcare provider may recommend watchful waiting for up to 10 days before starting antibiotics. You may need any of the following: ?? Acetaminophen decreases pain and fever. It is available without a doctor's order. Ask how much to take and how often to take it. Follow directions. Read the labels of all other medicines you are using to see if they also contain acetaminophen, or ask your doctor or pharmacist. Acetaminophen can cause liver damage if not taken correctly. Do not use more than 4 grams (4,000 milligrams) total of acetaminophen in one day. ?? NSAIDs , such as ibuprofen, help decrease swelling, pain, and fever. This medicine is available with or without a doctor's order. NSAIDs can cause stomach bleeding or kidney problems in certain people. If you take blood thinner medicine, always ask your healthcare provider if NSAIDs are safe foryou. Always read the medicine label and follow directions. ?? Nasal steroid sprays may help decrease inflammation in your nose and sinuses. ?? Decongestants help reduce swelling and drain mucus in the nose and sinuses. They may help you breathe easier. ?? Antihistamines help dry mucus in the nose and relieve sneezing. ?? Antibiotics help treat or prevent a bacterial infection. ?? Take your medicine [...] in case of an emergency. Self-care: ?? Rinse your sinuses. Use a sinus rinse device to rinse your nasal passages with a saline (salt water) solution or distilled water. Do not use tap water. This will help thin the mucus in your nose and rinse away pollen and dirt. It will also help reduce swelling so you can breathe normally. Ask your healthcare provider how often to do this. ?? Breathe in steam. Heat a bowl of water until you see steam. Lean over the bowl and make a tent over your head with a large towel. Breathe deeply for about 20 minutes. Be careful not to get too close to the steam or burn yourself. Do this 3 times a day. You can also breathe deeply when you take ahot shower. ?? Sleep with your head elevated. Place an extra pillow under your head before you go to sleep to help your sinuses drain. ?? Drink liquids as directed. Ask your healthcare provider how much liquid to drink each day and which liquids are best for you. Liquids will thin the mucus in your nose and help it drain. Avoid drinks that contain alcohol or caffeine. ?? Do not smoke, and avoid secondhand smoke. Nicotine and other chemicals in cigarettes and cigars can make your symptoms worse. Ask your healthcare provider for information if you currently smoke and need help to quit. E-cigarettes or smokeless tobacco still contain nicotine. Talk to your healthcare provider before you use these products. Prevent the spread of germs that cause sinusitis: Wash your hands often with soap and water. Wash your hands after you use the bathroom, change a child's diaper, or sneeze. Wash your hands before youprepare or eat food. Follow up with your healthcare provider as directed: You may be referred to an ear, nose, and throat specialist. Write down your questions so you remember to ask them during your visits. ?? 2017 [employer] Information is for End User's use only and may not be sold, redistributed or otherwise used for commercial purposes. All illustrations and images included in CareNotes?? are the copyrighted property of [employer], [employer] or [employer]. The above information is an pharmacist aide only. It is not intended as medical advice for individual conditions or treatments. Talk to your doctor, nurse or pharmacist before following any medical regimen to see if it is safe and effective for you. documented in this encounter Progress Notes * Wild Hudson APRN-CNP - 02/25/2018 3:23 PM CDT [facility] Chief Complaint Patient presents with ??? Ear Pain ??? Sinusitis ??? Congestion SUBJECTIVE: General The history is provided by the patient (32 Y/O M). This is a new problem. The current episode started more than 1 week ago. The problem occurs constantly. The problem has been gradually worsening. The pain is moderate. Body Location: SINUS PRESSURE/PAIN, EAR PAIN/THROBBING , CONGESTION, DECREASED HEARING Associated symptoms include headaches. Nothing aggravates the symptoms. Nothing relieves the symptoms. Past Medical History: Diagnosis Date ??? DM (diabetes mellitus) ??? Sinusitis No current outpatient prescriptions on file prior to visit. No current facility-administered medications on file prior to visit. No past surgical history on file. Social History Social History ??? Marital status: Single Spouse name: N/A ??? Number of children: N/A ??? Years of education: N/A Occupational History ??? Not on file. Social History Main Topics ??? Smoking status: Former Smoker ??? Smokeless tobacco: Never Used ??? Alcohol use Not on file ??? Drug use: Not on file ??? Sexual activity: Not on file Other Topics Concern ??? Not on file Social History Narrative ??? No narrative on file No family history on file. Current Outpatient Prescriptions Medication Sig Dispense Refill ??? Insulin Glargine (LANTUS SC) ??? fluticasone propionate (FLONASE) 50 MCG/ACT nasal spray [place] 2 sprays into each nostril once daily 1 bottles 0 ??? amoxicillin-clavulanate (AUGMENTIN) 875-125 MG tablet Take 1 tablet by mouth 2 times daily withmorning and evening meal for 10 days 20 tablet 0 ??? smvpwlkc-zjmiirvog-ul (CORTISPORIN) 3.5-53261-6 otic suspension Instill 3 drops into both ears 4 times daily for 7 days 10 mL 0 No current facility-administered medications for this visit. No Known Allergies REVIEW OF SYSTEMS: Review of Systems Constitutional: Positive for malaise/fatigue. Negative for chills and fever. HENT: Positive for congestion, ear pain and sinus pain. Negative for sore throat. Respiratory: Negative. Cardiovascular: Negative. Gastrointestinal: Negative. Neurological: Positive for headaches. OBJECTIVE: General appearance: alert, well appearing, and in no distress. BP 104/68 (BP SITE: RIGHT ARM, BP POSITION: SITTING, BP CUFF SIZE: 11) Pulse 73 Temp 99.2 ??F (37.3??C) (Oral) Resp 17 Ht 1.829 m (6') Wt 98.9 kg (218 lb) BMI 29.57 kg/m2 Physical Exam Constitutional: He is well-developed, well-nourished, and in no distress. HENT: NARES AND TM'S ERYTHEMA, EDEMA, TENDER SINUSES WITH PALPATION BILATERAL EAR CANALS ERYTHEMA, EDEMA, TENDERNESS WHEN PULLING ON TRAGUS Neck: Normal range of motion. Neck supple. Cardiovascular: Normal rate and regular rhythm. Pulmonary/Chest: Effort normal and breath sounds normal. He has no wheezes. Lymphadenopathy: He has no cervical adenopathy. ASSESSMENT: No results found for this visit on 02/25/18. Encounter Diagnoses Name Primary? Otitis externa of both ears, unspecified chronicity, unspecified type Yes ??? Bilateral acute serous otitis media, recurrence not specified ??? Acute sinusitis, recurrence not specified, unspecified location PLAN: Orders Placed This Encounter ??? fluticasone propionate (FLONASE) 50 MCG/ACT nasal spray Sig: [place] 2 sprays into each nostril once daily Dispense: 1 bottles Refill: 0 ??? amoxicillin-clavulanate (AUGMENTIN) 875-125 MG tablet Sig: Take 1 tablet by mouth 2 times daily with morning and evening meal for 10 days Dispense: 20 tablet Refill: 0 ??? yemmtsmn-beezhpnit-mh (CORTISPORIN) 3.5-04581-9 otic suspension Sig: Instill 3 drops into both ears 4 times daily for 7 days Dispense: 10 mL Refill: 0 documented in this encounter Plan of Treatment Not on file documented as of this encounter Visit Diagnoses Diagnosis Otitis externa of both ears, unspecified chronicity, unspecified type- Primary Bilateral acute serous otitis media, recurrence not specified Acute sinusitis, recurrence not specified, unspecified location documented in this encounter Care Teams Receiver Setter Relationship Specialty [place] [address] [place] [address] [phone] PCP - General Internal Medicine 02/25/18 [place] [address] [place] [address] [phone] Internal Medicine 02/25/18 documented as of this encounter
--- OUTSIDE RECORDS SUMMARY | 2024-09-13 06:35 | XMS_ITS | Encounter Summary ---
Author Organization [facility] Address [address] [place] [address] Care Team Providers Care Publicity Agent Name Role Phone Adam Geronimo MD Primary Care Provider Adam Geronimo MD Unavailable [phone] Reason for Visit * Reason Onset Date Comments Follow-up 02/27/2018 Encounter Details Date Type Department Care Team (Late st Contact Info) Description 02/27/2018 Telephone [facility] AT [address] [address] Tia Barton Follow-up Social History [...] on filedocumented in this encounter Care Teams Publicity Agent Relationship Specialty [place] [address] [place] [address] [phone] PCP - General Internal Medicine 02/25/18 [place] [address] [place] [address] [phone] Internal Medicine 02/25/18 documented as of this encounter
--- OUTSIDE RECORDS SUMMARY | 2024-09-13 06:35 | XMS_ITS | CONTINUITY OF CARE DOCUMENT ---
Author Name omari salcido Address Unknown Organization [facility] Address [address] [place] [address] Phone [phone] Care Team Providers Care Carpenter Maintenance Name Role Phone Derek MCKEON, Katya Unavailable [phone] INSURANCE PROVIDERS Payer name Policy type / Coverage type Jessica red green party ID [id number] PAY [id number]
== END 2024-09-06 07:55 | disposition home or self-care (01) ==
PROVIDERS: Emergency Provider Emergency Medicine; PCP Internal Medicine Infectious Disease
DX: M25.512 Pain in left shoulder (principal); E11.9 Type 2 diabetes mellitus without complications; Z79.4 Long term (current) use of insulin
CPT/HCPCS: 73030; 99283